=== PATIENT | female | born 1995 | race Caucasian/White ===

== ENCOUNTER 2017-04-20 11:53 | Emergency (ER) | payer OTHER ==
[~2017-04-20] VITALS: Ht 160 cm; Wt 56.7 kg
[2017-04-20 12:37] VITALS: BP 126/87
--- NOTE | 2017-04-20 13:19 | RAD ---
Examination: Obstetric ultrasound greater than 14 weeks History: History of fall Comparison: 11/01/2014 Findings: The uterus measures 14.4 x 10.8 x 8.2 cm. The cervical length measures 4.6 cm. The right ovary measures 3.1 x 2.9 x 2.0 cm. The left ovary measures 3.7 x 3.5 x 2.0 cm. LMP 01/26/2017. Clinical age 12 weeks and 0 days. Estimated date of delivery by LMP 11/02/2017. Intrauterine identified with heart rate of 163 bpm. Gestational sac measures 5.6 cm corresponding to 11 weeks and 4 days. The crown-rump length is 5.2 cm corresponding to 11 weeks and 6 days. Gestational age corresponds to 11 weeks and 5 days by this ultrasound. Estimated date of delivery by this ultrasound 11/04/2017. Placenta is in anterior wall. Amniotic fluid is normal. Impression: Single living intrauterine with heart rate of 163 bpm. Gestational age by this ultrasound 11 weeks and 5 days.
--- NOTE | 2017-04-20 14:01 | PHYS DOC ---
Past Medical History Past Medical History: Other Additional Past Medical Histor: cystitis Past Surgical History: No Surgical History Alcohol Use: None Drug Use: None Adult General Chief Complaint Chief Complaint: MECHANICAL FALL HPI HPI Patient is a 21 year old female 2 para 1 currently 12 weeks who presents today status post falling. 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 She states the inmate had a guard supervisor with him in the room. She states the guard was talking to Dr. Romero when the prisoner reached out for the teaser which was on the recliner and started to remove it from the holster. She states the prisoner attempted to open the window with no success. She states the guard had left the room while the prisoner was also attempting to run away, she took off running and fell on her knees. She appears very shaken but denies hitting her head on the ground, denies any loss of consciousness, denies any pain. Denies any vaginal bleeding. 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 Review of Systems Review of Systems Constitutional: Denies fever or chills [] Eyes: Denies change in visual acuity, redness, or eye pain [] HENT: Denies nasal congestion or sore throat [] Respiratory: Denies cough or shortness of breath [] Cardiovascular: No additional information not addressed in HPI [] GI: : Denies dysuria or hematuria [] Musculoskeletal: fall Integument: Denies rash or skin lesions [] Neurologic: Denies headache, focal weakness or sensory changes [] Allergies Allergies Allergies Coded Allergies Type Severity Reaction Last Updated Verified No Known Drug Allergies 11/01/14 No Physical Exam Physical Exam Constitutional: Well developed, well nourished, no acute distress, non-toxic appearance. [] HENT: Normocephalic, atraumatic, bilateral external ears normal, oropharynx moist, no oral exudates, nose normal. [] Eyes: PERRLA, EOMI, conjunctiva normal, no discharge. [] Neck: Normal range of motion, no tenderness, supple, no stridor. [] Cardiovascular:Heart rate regular rhythm, no murmur [] Lungs & Thorax: Bilateral breath sounds clear to auscultation [] Abdomen: Bowel sounds normal, soft, no tenderness, no masses, no pulsatile masses. [] Skin: Warm, dry, no erythema, no rash. [] Back: No tenderness, no CVA tenderness. [] Extremities: No tenderness, no cyanosis, no clubbing, ROM intact, no edema. [] Neurologic: Alert and oriented X 3, normal motor function, normal sensory function, no focal deficits noted. [] Psychologic: Affect normal, judgement normal, mood normal. [] Current Patient Data Vital Signs Vital Signs Date Time Temp Pulse Resp B/P (MAP) Pulse Ox O2 Delivery O2 Flow Rate FiO2 04/20/17 12:37 98.4 99 18 99 Room Air 98.4 EKG EKG [] Radiology/Procedures Radiology/Procedures [] Course & Med Decision Making Course & Med Decision Making Pertinent Labs and Imaging studies reviewed. (See chart for details) Please see history of present illness. This is one of the people that was in a room as a 1:1 GLASS DECORATOR and a prisoner got hold a guard's teaser and tried to escape. Patient is currently 12 weeks . She has no pain complaint. She appears very traumatized, she is shaking and tearful. She fell down during this episode. OB ultrasound was negative for any acute findings. She currently cannot void because she states she is very shaken. We discharged her home. She will follow-up with her own SENIOR MECHANICAL DEVELOPMENT ENGINEER in the course of next week. She was provided return precautions and discharged in stable condition. Dragon Disclaimer Dragon Disclaimer This electronic medical record was generated, in whole or in part, using a voice recognition dictation system. Departure Departure Impression: Primary Impression: Fall from standing Additional Impressions: History of traumatic life event Disposition: 01 HOME, SELF-CARE Condition: STABLE Referrals: NO PCP (PCP) follow up with your doctor next week Patient Instructions: Fall Prevention and Home Safety Additional Instructions: You were seen status post falling. You were also involved in a traumatic event. We highly recommend you talk to a counsellor as soon as you can e.g [facility]. Please return to the emergency room at any point you have concerning symptoms. Follow-up with your SENIOR MECHANICAL DEVELOPMENT ENGINEER in the course of next week. Problem Qualifiers Primary Impression: Fall from standing Encounter type: initial encounter Qualified Codes: W19.XXXA - Unspecified fall, initial encounter Additional Impressions: Weeks of gestation: 11 weeks Qualified Codes: Z3A.11 - 11 weeks gestation of WESTLEYBRITT Kaiser JEWEL Apr 20, 2017 14:01
== END 2017-04-20 14:09 | disposition home or self-care (01) ==
LOC: ER 11:53
DX: Z34.91 Encounter for supervision of normal pregnancy, unspecified, first trimester (principal); Z3A.11 11 weeks gestation of pregnancy; W18.39XA Other fall on same level, initial encounter; Y93.02 Activity, running; Y92.89 Other specified places as the place of occurrence of the external cause; Y99.8 Other external cause status
CPT/HCPCS: 76801; 99284-25

== ENCOUNTER → 2020-06-29 | Outpatient (CLI) | payer OTHER | LOC: LAB 12:32 | PROVIDERS: ATTEND Internal Medicine Pulmonary Disease | DX: R05 Cough (principal); R06.02 Shortness of breath; R51.9 Headache, unspecified; R09.81 Nasal congestion; Z20.828 Contact with and (suspected) exposure to other viral communicable diseases | CPT/HCPCS: U0003 ==

== ENCOUNTER → 2020-09-01 | Outpatient (CLI) | payer OTHER | LOC: LAB 05:03 | PROVIDERS: ATTEND Internal Medicine Pulmonary Disease | DX: U07.1 COVID-19 (principal); R05 Cough; R09.81 Nasal congestion; R51.9 Headache, unspecified; R06.02 Shortness of breath; M79.10 Myalgia, unspecified site; R50.9 Fever, unspecified; R53.81 Other malaise | CPT/HCPCS: U0003 ==